=== PATIENT | female | born 1995 | race African-American/Black ===

== ENCOUNTER 2022-10-22 15:18 | Emergency (ER) | payer MEDICAID, OTHER ==
[~2022-10-22] VITALS: Ht 170.2 cm; Wt 82.1 kg
[2022-10-22 18:28] VITALS: BP 125/87; PULSE 71; RESP 20; TEMP 98; O2SAT 98
[2022-10-22] MEDS ORDERED: ACETAMINOPHEN 325 MG TAB PO ONE (18:30)
[2022-10-22] MEDS ORDERED: CYCL-837 PO (19:09)
[2022-10-22] MEDS ORDERED: IBUP-1456 PO (19:09)
== END 2022-10-22 20:12 | disposition home or self-care (01) ==
LOC: ER 15:18
DX: S16.1XXA Strain of muscle, fascia and tendon at neck level, initial encounter (principal); S39.012A Strain of muscle, fascia and tendon of lower back, initial encounter; R51.9 Headache, unspecified; J45.909 Unspecified asthma, uncomplicated; F17.210 Nicotine dependence, cigarettes, uncomplicated; Z79.1 Long term (current) use of non-steroidal anti-inflammatories (NSAID); Z79.899 Other long term (current) drug therapy; V43.62XA Car passenger injured in collision with other type car in traffic accident, initial encounter; Y93.89 Activity, other specified; Y92.411 Interstate highway as the place of occurrence of the external cause; Y99.8 Other external cause status
CPT/HCPCS: 70450; 72100; 72125